=== PATIENT | female | born 1940 | race Caucasian/White ===

== ENCOUNTER → 2016-10-17 | Outpatient (CLI) | payer OTHER ==
[~2016-10-17] MED LIST: ATOR-22 PO; CALCTAB30 PO; LEVO50TA6 PO; NAPR1TAB9 PO; TRAM-10 PO; [UNRECOGNIZED DRUG - CODE] PO
--- NOTE | 2016-10-17 12:18 | DIAGNOSTIC IMAGING REPORT ---
CAROTID ARTERY ULTRASOUND CLINICAL HISTORY: LIGHTHEADEDNESS COMPARISON STUDY: None. TECHNIQUE: Real-time, grayscale, and color Doppler sonography of the carotid and vertebral arteries was performed. Images were viewed in the transverse and longitudinal planes. FINDINGS: There is mild atherosclerotic plaque. Velocity measurements are listed below. COMMON CAROTID PEAK SYSTOLIC VELOCITY (CM/S): RIGHT 98 LEFT 95 ICA PEAK SYSTOLIC VELOCITY (CM/S): RIGHT 91 LEFT 90 The systolic ratios between the internal to common carotid arteries are normal. Antegrade flow is seen in the vertebral arteries. The external carotid arteries are patent. Blood pressure in the right arm measured 121/64. Blood pressure in the left arm measured 124/60. IMPRESSION: No evidence of a hemodynamically significant stenosis. Electronically signed by: Don Gutierrez M.D. 10/17/2016 12:17 PM Dictated Date/Time: 10/17/2016 12:10 PM
== END | disposition home or self-care (01) ==
LOC: C.ULTR 11:04
PROVIDERS: ATTEND Physician Assistant
DX: I65.23 Occlusion and stenosis of bilateral carotid arteries (principal); R42 Dizziness and giddiness

== ENCOUNTER → 2016-11-11 | Day surgery (SDC) | payer OTHER ==
[2016-10-15 08:57] VITALS: Ht 162.6 cm; Wt 55.0 kg
[~2016-11-11] VITALS: Ht 162.6 cm; Wt 55.0 kg
[~2016-11-11] MED LIST changes: +500ML BSS 0.3ML EPI 1:1000PF IRRIG ONE; +ACETAMINOPHEN 325 MG TAB PO PRN; +AMVISC PLUS 0.8ML SYRINGE INT OCU ONE; +ATROPINE SULFATE 0.1 MG/ML 5ML SYR IV PRN; +BSS FLUSH ONE; +EpHEDrine SULFATE INJ 50 MG/ML AMP IV PRN; +EpINEphrine INJ 1MG/ML AMP 1 MG/ML AMP ONE; +LACTATED RINGER'S 1000ML 500 ML IV SCH; +LIDOCAINE 3.5% OPH GEL PER APPLICATION CHARGE ONE; +LIDOCAINE HCL 1% MPF 2 ML VIAL ONE; +MIDAZOLAM HCL 1 MG/ML 2ML VIAL ONE; +OCUCOAT 1 ML SOLN IO ONE; +POVIDONE-IODINE OP SOLN 30 ML BTL ONE; +PROPARACAINE 0.5% OP SOLN PER DROP CHARGE OPR SCH; +TOBRAMYCIN/DEXAMETHASONE OPH OINT PER APPLN CHARGE ONE
[2016-11-11] MEDS: PHENYLEPHRINE HCL 2.5% OP SOLN PER DROP CHARGE OPR SCH ×2 (09:41→09:46)
[2016-11-11] MEDS: TROPICAMIDE 1% OP SOLN PER DROP CHARGE OPR SCH ×2 (09:42→09:47)
[2016-11-11] MEDS: CYCLOPENTOLATE HCL 1% OP SOLN PER DROP CHARGE OPR SCH ×2 (09:43→09:48)
[2016-11-11] MEDS: KETOROLAC 0.5% OP SOLN PER DROP CHARGE OPR SCH ×2 (09:44→09:49)
[2016-11-11] MEDS: GATIFLOXACIN OP SOLN PER DROP CHARGE OPR SCH ×2 (09:45→09:53)
--- NOTE | 2016-11-11 10:06 | History & Physical Bridge - SC ---
H&P Re-Evaluation Bridge Note: I have examined the patient, reviewed the History & Physical and in the interval since the performance of the History & Physical I have noted the following changes of clinical significance: No changes noted
--- NOTE | 2016-11-11 10:39 | Discharge Instructions-SurgCtr ---
Discharge Instructions Date of Service Nov 11, 2016. Visit Reason for Visit: Cataract Right Eye Discharge Discharge Diagnosis / Problem: cataract Discharge Goals Goal(s): Improve function Activity Recommendations Activity Limitations: per Instructions/Follow-up section Anesthesia . Post Anesthesia Instructions: If you have had General Anesthesia or IV Sedation: * Do not drive today. * Resume driving when surgeon permits. * Do not make important decisions or sign legal documents today. * Call surgeon for: 1. Temperature elevations greater than 101 degrees F. 2. Uncontrollable pain. 3. Excessive bleeding. 4. Persistent nausea and vomiting. 5. Medication intolerance (nausea, vomiting or rash). * For nausea and vomiting use only clear liquids such as: tea, soda, bouillon until nausea subsides, then gradually increase diet as tolerated. * If you have any concerns or questions, call your surgeon's office. If physician is unavailable and it is an emergency, call 911 or go to the nearest emergency room. . Diet Recommendations Home Diet: resume previous diet Procedures Procedures Performed: Right Cataract Phacoemulsification With Intraocular Lens Implant Pending Studies Studies pending at discharge: no Medical Emergencies . Who to Call and When: Medical Emergencies: If at any time you feel your situation is an emergency, please call 911 immediately. . Non-Emergent Contact Non-Emergency issues call your: Floorworker Distributor . . "Provider Documentation" section prepared by Mono Martin. .
--- NOTE | 2016-11-11 10:39 | [facility] Operative Report ---
Operative Report Date of Service Nov 11, 2016. Operative Report 1. PREOPERATIVE DIAGNOSIS: Cataract of the right eye. 2. POSTOPERATIVE DIAGNOSIS: Same. 3. PROCEDURE: Phacoemulsification with intraocular lens implantation of the right eye. SURGEON: Dr. Mono Martin. ANESTHESIA: Topical Lidocaine gel, 1% Non- Preserved intracameral Lidocaine, and monitored intravenous sedation. INDICATIONS FOR THE PROCEDURE: The patient is a 76 - year-old female with a history of cataract of the right eye causing significant visual impairment. The details of the proposed procedure were explained to the patient who asked appropriate questions and following discussion of all risks, benefits and alternatives agreed to have the procedure done. 4. OPERATION AND FINDINGS: DESCRIPTION OF PROCEDURE: After informed consent was obtained, the patient was brought to the Operating Room at the [facility]. The patient was placed in a supine position and then the right eye was prepped and draped in the usual sterile fashion for intraocular surgery. A drop of topical Lidocaine gel was placed in the operative eye. A wire lid speculum was then placed in the fornices. A corneal paracentesis was then created temporally. The Non-Preserved Lidocaine was then instilled into the anterior chamber. The anterior chamber was then pressurized with viscoelastic. A 2.0 mm clear corneal incision was then created temporally. A cystotome was inserted into the anterior chamber and used to create a tear in the anterior lens capsule. This capsular tear was then used to create a small flap and the flap was dragged in a counterclockwise direction in order to create a continuous curvilinear capsulorrhexis. Hydrodissection was accomplished with balanced salt solution. Phacoemulsification of the lens nucleus was then performed in a standard [id number] technique. The phaco time was 21 seconds with an average power of 10 %. The remaining cortical material was removed using irrigation aspiration. The capsular bag was then filled with viscoelastic. A Bausch [employer] Lomb MI60L +22.0 diopters lens was then loaded into the injector and injected into the capsular bag. The remaining viscoelastic was removed with the irrigation aspiration handpiece. The wound was hydrated and then checked and found to be watertight. The intraocular pressure was checked and found to be adequate. The wire lid speculum was removed and the patient's face was cleaned and dried. TobraDex ointment was placed in the inferior fornix. The patient was discharged to the Recovery Room having tolerated the procedure well. There were no complications. The patient will be seen tomorrow in the office for follow-up. I attest to the content of the Intraoperative Record and any orders documented therein. Any exceptions are noted below.
[2016-11-11 10:40] VITALS: TEMP 36.1
--- NOTE | 2016-11-11 10:49 | Anesthesia Progress Nt - [facility] ---
Anesthesia Post Op Note Date & Time Nov 11, 2016 at 10:49 Vital Signs Pain Intensity: 0 Vital Signs Past 12 Hours Date Time Temp Pulse Resp B/P (MAP) Pulse Ox O2 Delivery O2 Flow Rate FiO2 11/11/16 10:40 36.1 70 20 144/71 (95) 100 Room Air 11/11/16 09:34 36.4 71 16 164/90 (114) 98 Room Air Notes Mental Status: alert / awake / arousable, participated in evaluation Pt Amnestic to Procedure: Yes Nausea / Vomiting: adequately controlled Pain: adequately controlled Airway Patency, RR, SpO2: stable & adequate BP & HR: stable & adequate Hydration State: stable & adequate Anesthetic Complications: no major complications apparent
[2016-11-11 11:04] VITALS: BP 156/78; PULSE 72; O2SAT 100
== END | disposition home or self-care (01) ==
LOC: X.SURG 08:34
PROVIDERS: ATTEND Ophthalmology
DX: H25.9 Unspecified age-related cataract (principal); E78.5 Hyperlipidemia, unspecified; E03.9 Hypothyroidism, unspecified; Z79.899 Other long term (current) drug therapy; I65.29 Occlusion and stenosis of unspecified carotid artery

== ENCOUNTER → 2016-12-02 | Day surgery (SDC) | payer OTHER ==
[2016-11-20 11:20] VITALS: Ht 162.6 cm; Wt 55.0 kg
[~2016-12-02] VITALS: Ht 162.6 cm; Wt 55.0 kg
[~2016-12-02] MED LIST changes: +PROPARACAINE 0.5% OP SOLN PER DROP CHARGE OPL SCH; -PROPARACAINE 0.5% OP SOLN PER DROP CHARGE OPR SCH
[2016-12-02] MEDS: PHENYLEPHRINE HCL 2.5% OP SOLN PER DROP CHARGE OPL SCH ×2 (10:37→10:42)
[2016-12-02] MEDS: TROPICAMIDE 1% OP SOLN PER DROP CHARGE OPL SCH ×2 (10:38→10:43)
[2016-12-02] MEDS: CYCLOPENTOLATE HCL 1% OP SOLN PER DROP CHARGE OPL SCH ×2 (10:39→10:44)
[2016-12-02] MEDS: KETOROLAC 0.5% OP SOLN PER DROP CHARGE OPL SCH ×2 (10:40→10:45)
[2016-12-02] MEDS: GATIFLOXACIN OP SOLN PER DROP CHARGE OPL SCH ×2 (10:41→10:51)
--- NOTE | 2016-12-02 11:37 | Discharge Instructions-SurgCtr ---
Discharge Instructions Date of Service Dec 02, 2016. Visit Reason for Visit: Cataract Left Eye Discharge Discharge Diagnosis / Problem: cataract Discharge Goals Goal(s): Improve function Activity Recommendations Activity Limitations: per Instructions/Follow-up section Anesthesia . Post Anesthesia Instructions: If you have had General Anesthesia or IV Sedation: * Do not drive today. * Resume driving when surgeon permits. * Do not make important decisions or sign legal documents today. * Call surgeon for: 1. Temperature elevations greater than 101 degrees F. 2. Uncontrollable pain. 3. Excessive bleeding. 4. Persistent nausea and vomiting. 5. Medication intolerance (nausea, vomiting or rash). * For nausea and vomiting use only clear liquids such as: tea, soda, bouillon until nausea subsides, then gradually increase diet as tolerated. * If you have any concerns or questions, call your surgeon's office. If physician is unavailable and it is an emergency, call 911 or go to the nearest emergency room. . Diet Recommendations Home Diet: resume previous diet Procedures Procedures Performed: Left Cataract Phacoemulsification With Intraocular Lens Implant Pending Studies Studies pending at discharge: no Medical Emergencies . Who to Call and When: Medical Emergencies: If at any time you feel your situation is an emergency, please call 911 immediately. . Non-Emergent Contact Non-Emergency issues call your: Mortgage Manager . . "Provider Documentation" section prepared by Mono Martin. .
--- NOTE | 2016-12-02 11:38 | [facility] Operative Report ---
Operative Report Date of Service Dec 02, 2016. Operative Report 1. PREOPERATIVE DIAGNOSIS: Cataract of the left eye. 2. POSTOPERATIVE DIAGNOSIS: Same. 3. PROCEDURE: Phacoemulsification with intraocular lens implantation of the left eye. SURGEON: Dr. Mono Martin. ANESTHESIA: Topical Lidocaine gel, 1% Non- Preserved intracameral Lidocaine, and monitored intravenous sedation. INDICATIONS FOR THE PROCEDURE: The patient is a 76 - year-old female with a history of cataract of the left eye causing significant visual impairment. The details of the proposed procedure were explained to the patient who asked appropriate questions and following discussion of all risks, benefits and alternatives agreed to have the procedure done. 4. OPERATION AND FINDINGS: DESCRIPTION OF PROCEDURE: After informed consent was obtained, the patient was brought to the Operating Room at the [facility]. The patient was placed in a supine position and then the left eye was prepped and draped in the usual sterile fashion for intraocular surgery. A drop of topical Lidocaine gel was placed in the operative eye. A wire lid speculum was then placed in the fornices. A corneal paracentesis was then created temporally. The Non-Preserved Lidocaine was then instilled into the anterior chamber. The anterior chamber was then pressurized with viscoelastic. A 2.0 mm clear corneal incision was then created temporally. A cystotome was inserted into the anterior chamber and used to create a tear in the anterior lens capsule. This capsular tear was then used to create a small flap and the flap was dragged in a counterclockwise direction in order to create a continuous curvilinear capsulorrhexis. Hydrodissection was accomplished with balanced salt solution. Phacoemulsification of the lens nucleus was then performed in a standard [id number] technique. The phaco time was 24 seconds with an average power of 12 %. The remaining cortical material was removed using irrigation aspiration. The capsular bag was then filled with viscoelastic. A Bausch & Lomb MI60L +22.5 diopters lens was then loaded into the injector and injected into the capsular bag. The remaining viscoelastic was removed with the irrigation aspiration handpiece. The wound was hydrated and then checked and found to be watertight. The intraocular pressure was checked and found to be adequate. The wire lid speculum was removed and the patient's face was cleaned and dried. TobraDex ointment was placed in the inferior fornix. The patient was discharged to the Recovery Room having tolerated the procedure well. There were no complications. The patient will be seen tomorrow in the office for follow-up. I attest to the content of the Intraoperative Record and any orders documented therein. Any exceptions are noted below.
[2016-12-02 11:40] VITALS: TEMP 36.8
[2016-12-02 12:04] VITALS: BP 142/79; PULSE 77; O2SAT 99
--- NOTE | 2016-12-02 12:04 | Anesthesiology Progress Note ---
Anesthesia Post Op Note Date & Time Dec 02, 2016 at 12:04 Vital Signs Pain Intensity: 0 Vital Signs Past 12 Hours Date Time Temp Pulse Resp B/P (MAP) Pulse Ox O2 Delivery O2 Flow Rate FiO2 12/02/16 11:40 36.8 71 16 121/66 (84) 99 Room Air 12/02/16 10:27 36.4 60 16 148/80 (102) 97 Room Air Notes Mental Status: alert / awake / arousable, participated in evaluation Nausea / Vomiting: adequately controlled Pain: adequately controlled Airway Patency, RR, SpO2: stable & adequate BP & HR: stable & adequate Hydration State: stable & adequate Anesthetic Complications: no major complications apparent
== END | disposition home or self-care (01) ==
LOC: X.SURG 09:16
PROVIDERS: ATTEND Ophthalmology
DX: H26.9 Unspecified cataract (principal); E78.2 Mixed hyperlipidemia; E03.9 Hypothyroidism, unspecified; I65.23 Occlusion and stenosis of bilateral carotid arteries; M85.80 Other specified disorders of bone density and structure, unspecified site; Z79.899 Other long term (current) drug therapy; Z98.41 Cataract extraction status, right eye; Z83.3 Family history of diabetes mellitus; Z82.49 Family history of ischemic heart disease and other diseases of the circulatory system; Z81.8 Family history of other mental and behavioral disorders

== ENCOUNTER → 2017-10-07 | Outpatient (CLI) | payer OTHER ==
[~2017-10-07] MED LIST changes: -500ML BSS 0.3ML EPI 1:1000PF IRRIG ONE; -ACETAMINOPHEN 325 MG TAB PO PRN; -AMVISC PLUS 0.8ML SYRINGE INT OCU ONE; -ATROPINE SULFATE 0.1 MG/ML 5ML SYR IV PRN; -BSS FLUSH ONE; -EpHEDrine SULFATE INJ 50 MG/ML AMP IV PRN; -EpINEphrine INJ 1MG/ML AMP 1 MG/ML AMP ONE; -LACTATED RINGER'S 1000ML 500 ML IV SCH; -LIDOCAINE 3.5% OPH GEL PER APPLICATION CHARGE ONE; -LIDOCAINE HCL 1% MPF 2 ML VIAL ONE; -MIDAZOLAM HCL 1 MG/ML 2ML VIAL ONE; -OCUCOAT 1 ML SOLN IO ONE; -POVIDONE-IODINE OP SOLN 30 ML BTL ONE; -PROPARACAINE 0.5% OP SOLN PER DROP CHARGE OPL SCH; -TOBRAMYCIN/DEXAMETHASONE OPH OINT PER APPLN CHARGE ONE
--- NOTE | 2017-10-07 11:10 | DIAGNOSTIC IMAGING REPORT ---
L TOE(S) MIN 2 VIEWS HISTORY: 77 years-old Female LEFT TOE PAIN acute pain of the left fifth toe COMPARISON: None available TECHNIQUE: 3 views of the left fifth toe FINDINGS: Bones appear mildly demineralized. Moderate degenerative changes of the interphalangeal joints. There is an acute nondisplaced fracture involving the lateral base of the fifth proximal phalanx with possible intra-articular extension. Linear lucencies about the central fifth proximal phalangeal head and lateral aspect of the fifth middle phalanx are also noted. Mild soft tissue swelling. IMPRESSION: 1. Acute nondisplaced fracture of the fifth proximal phalangeal base with possible intra-articular extension. 2. Ill-defined linear lucencies involving the fifth proximal phalangeal head and fifth middle phalanx are also noted, equivocal for additional acute nondisplaced fractures. Correlate with point tenderness. The above report was generated using voice recognition software. It may contain grammatical, syntax or spelling errors. Electronically signed by: Ronnie Tejeda M.D. 10/07/2017 11:09 AM Dictated Date/Time: 10/07/2017 11:05 AM
== END | disposition home or self-care (01) ==
LOC: C.RAD 10:21
PROVIDERS: ATTEND Physician Assistant
DX: S92.515A Nondisplaced fracture of proximal phalanx of left lesser toe(s), initial encounter for closed fracture (principal); X58.XXXA Exposure to other specified factors, initial encounter

== ENCOUNTER 2021-10-06 21:58 | Observation (INO) ==
[2021-10-06] MEDS ORDERED: SODIUM CHLORIDE 0.9% 1000ML 1,000 ML IV SCH (22:15)
[2021-10-06] MEDS ORDERED: SODIUM CHLORIDE 0.9% 500 ML IV SCH (22:15)
[2021-10-06 22:25] LABS: Basophils # (auto) 0.04 K/uL (0-0.2); Basophils % (auto) 0.4 %; Eosinophils # (auto) 0.22 K/uL (0-0.50); Eosinophils % (auto) 2.4 %; Hematocrit (blood only) 40.5 % (34.1-44.9); Hemoglobin 13.2 g/dl (12.0-16.0); Immature Granulocytes # (auto) 0.03 K/uL (0.00-0.02); Immature Granulocytes % (auto) 0.3 %; Lymphocytes # (auto) 2.06 K/uL (1.2-3.4); Lymphocytes % (auto) 22.6 %; Mean Corpuscular Hemoglobin 30.4 pg (25.0-34.0); Mean Corpuscular Hgb Conc 32.6 g/dL (32.0-36.0); Mean Corpuscular Volume 93.3 fL (80.0-100.0); Mean Platelet Volume 9.5 fL (9.4-12.3); Monocytes # (auto) 0.94 K/uL (0.24-0.82); Monocytes % (auto) 10.3 %; Neutrophils # (auto) 5.83 K/uL (1.4-6.5); Platelet Count 272 K/uL (130-400); RDW Coefficient of Variation 12.9 % (11.5-14.5); Red Blood Count 4.34 M/uL (3.93-5.22); White Blood Count 9.12 K/ul (4.8-10.8)
[2021-10-06] MEDS ORDERED: METOPROLOL TARTRATE 1 MG/ML VIAL IV STA (22:31)
[2021-10-06 22:45] LABS: Albumin Globulin Ratio 1.7 (0.9-2); Albumin Level 4.3 gm/dl (3.4-5.0); BUN Creatinine Ratio 24.1 (10-20); Bilirubin,Total 0.3 mg/dl (0.2-1.0); Calcium 9.3 mg/dl (8.5-10.1); Creatinine Clr Calc Pharmacy 43.7 ml/min; Est GFR (African American) 77.2 ml/min; Est GFR (Non-African American) 66.6 ml/min; Globulin 2.5 gm/dl (2.5-4.0); Magnesium 2.2 mg/dl (1.7-2.4); Total Protein 6.8 gm/dl (6.0-8.3)
[2021-10-06 22:51] LABS: Troponin I High Sensitivity 7.2 pg/ml (0-14)
--- NOTE | 2021-10-06 23:09 | Emergency Department Note ---
Impression & Plan Narrow complex tachycardia, Dizziness, Weakness ED Provider Note INFORMANT: Patient ED PROVIDER(S): Skuhdev Leger MD CHIEF COMPLAINT: Weakness PLAN: Disposition: Admitted Condition: Good Outpatient prescription management: none Referral: None MEDICAL DECISION MAKING: Patient presented because of weakness and palpitations. She had an extremely fast heart rate that was narrow complex. There was a lot of ectopy with PACs and PVCs noted. At some point it appeared to be irregular like an A. fib with RVR but she frequently would break into what appeared to be a sinus rhythm and s inus tachycardia. An IV was established by EMS and she was hydrated. Additional hydration was given in the emergency department here. She was given 2.5 mg dose of IV Lopressor. This did work nicely to decrease the episodes of tachycardia. She was still having significant PACs and PVCs. Her CBC and chemistry panel was unremarkable. Magnesium and potassium were within normal limits. Urinalysis is pending. Chest x-ray did not reveal any acute findings. Patient was reassessed and was still doing well. She would occasionally have a few bursts of tachycardia but for the most part was controlled around 95 to 100 bpm. She still had moderate ectopy. I discussed conservative management in the hospital. Patient was in agreement. Consultation was placed with the [facility] Hospitalist service. Patient was evaluated in the ER and was managed Triage Nursing notes reviewed and agree them. Vital Signs: reviewed and remarkable for no significant abnormalities Differential diagnosis: Infection, dehydration, metabolic abnormality, hypo/hyperglycemia, electrolyte disturbance, anemia, hypoxia, cardiac sources, intracerebral event, toxicologic, neurologic, as well as other pathologies. Diagnostics interpreted by me: ECG: Twelve-lead ECG reveals a sinus rhythm with a brief narrow complex tachycardia that was irregular. Premature supraventricular complexes present. No ST elevation or depression. Cardiac Monitoring: Cardiac monitoring ordered by me: The patient was placed on continuous cardiac monitoring and observed. It revealed a sinus rhythm with P ACs and PVCs at 98 bpm. Imaging studies: Chest x-ray. Findings: A chest x-ray was performed and revealed no pneumothorax, effusion, infiltrate, pulmonary edema, free air under the diaphragm, or wide mediastinum. Impression: No acute disease. HPI: The patient is a 81year old female who presents to the Emergency Room with complaints of weakness. This started today and is persistent. The patient also notes the following associated symptoms, dizziness and palpitations. The patient has found no relieving factors. Current pain is rated as 0/10. Patient was feeling weak and dizzy and her heart was racing. She was evaluated by EMS and was found to have a heart rate of 180. She was given a 700 mL saline bolus. Her heart rate did decrease slightly but was still going to the 130s. Occasionally she would slow down to below 100. Patient denies any history of the same. She thought it may be due to stress as she recently lost 2 family members. Pt denies LOC, headache, fevers, chills, diaphoresis, visual changes, neck pain, chest pain, breathing difficulties, nausea, vomiting, abdominal pain, back pain, melena, hematochezia, urinary symptoms, numbness, lymphadenopathy, rash, or other complaints. ROS: See above HPI for pertinent positives & negatives. A total of 10 systems reviewed and were otherwise negative. PAST MEDICAL HISTORY:See Below , hypothyroidism PAST SURGICAL HISTORY:See Below, FAMILY HISTORY:See Below SOCIAL HISTORY:See Below, non-smoker HOME MEDICATIONS:See Below ALLERGIES:See Below VITALS:See Below PHYSICAL EXAMINATION: GENERAL: Awake, tired-appearing, in no distress HENT: Normocephalic, atraumatic. Oropharynx unremarkable. EYES: Normal conjunctiva. Sclera non-icteric. NECK: Inspection normal. Non-tender. Supple. No nuchal rigidity. FROM. No masses. RESPIRATORY: Clear to auscultation. No wheezes. No rales. Normal respiratory effort. CARDIAC: Tachycardic rate. Irregular rhythm. No murmurs. No rubs. Extremities warm and well perfused. Pulses equal. No JVD. GI: Soft, non-distended. No tenderness to palpation. No rebound or guarding. No masses. RECTAL: Deferred. MUSCULOSKELETAL: Atraumatic. Chest examination reveals no tenderness. The back is symmetrical on inspection without obvious abnormality. There is no CVA tenderness to palpation. No joint edema. LOWER EXTREMITIES: Calves are equal size bilaterally and non-tender. No edema. No discoloration. NEURO: Normal sensorium. No sensory or motor deficits noted. SKIN: No rash or jaundice noted. Sukhdev Leger MD Past Med/Surg History Social History Smoking Status: Never smoker Preferred Language: Urdu Feels Safe at Home: Yes Allergies Allergies Allergy/AdvReac Type Severity Reaction Status Date / Time No Known Drug Allergies Allergy Unknown . Verified 08/05/20 17:39 Home Meds Home Medications Medication Instructions Recorded Confirmed atorvastatin 20 mg tablet 20 mg PO DAILY 08/05/20 08/05/20 levothyroxine 50 mcg tablet 50 mcg PO DAILY 08/05/20 08/05/20 tramadol 50 mg tablet 50 mg PO DAILY PRN Pain 08/05/20 08/05/20 Results & Data (ED) Vital Signs Vital Signs - 24 hr 10/06/21 22:12 10/06/21 22:25 10/06/21 22:25 Temperature 36.9 C Temperature Source Oral Pulse Rate 125 H Pulse Rate [Finger] 125 H Pulse Rhythm [Finger] Irregular Respiratory Rate 18 18 Respiratory Effort / Characteristics Non-Labored Spontaneous Non-Labored Spontaneous Respiratory Depth Normal Normal Blood Pressure 137/53 L Blood Pressure [Right Arm] 137/53 L Blood Pressure Mean 81 Blood Pressure Mean [Right Arm] 81 Blood Pressure Position Sitting Blood Pressure Position [Right Arm] Sitting Pulse Oximetry 96 96 96 Oxygen Delivery Method Room Air Room Air Room Air Sepsis Recent Fever Within 48 Hours No Sepsis New/Unexplained Change in Mental Status No Sepsis Action Taken by Nursing No Action Required 10/06/21 22:25 10/06/21 22:36 10/06/21 23:00 Temperature Temperature Source Pulse Rate 125 H 138 H Pulse Rate [Finger] 91 H Pulse Rhythm [Finger] Respiratory Rate 18 17 Respiratory Effort / Characteristics Non-Labored Spontaneous Respiratory Depth Normal Blood Pressure 127/76 Blood Pressure [Right Arm] 122/76 Blood Pressure Mean Blood Pressure Mean [Right Arm] 91 Blood Pressure Position Blood Pressure Position [Right Arm] Sitting Pulse Oximetry 96 97 Oxygen Delivery Method Room Air Room Air Sepsis Recent Fever Within 48 Hours Sepsis New/Unexplained Change in Mental Status Sepsis Action Taken by Nursing Laboratory Data Result diagrams: 10/06/21 22:04 10/06/21 22:04 Lab Results 10/06/21 10/06/21 10/06/21 Range/Units 22:04 22:04 22:04 WBC 9.12 (4.8-10.8) K/ul RBC 4.34 (3.93-5.22) M/uL Hgb 13.2 (12.0-16.0) g/dl Hct 40.5 (34.1-44.9) % MCV 93.3 (80.0-100.0) fL MCH 30.4 (25.0-34.0) pg MCHC 32.6 (32.0-36.0) g/dL RDW Std Deviation 44.0 (36.4-46.3) fL RDW Coeff of Lucas 12.9 (11.5-14.5) % Plt Count 272 (130-400) K/uL MPV 9.5 (9.4-12.3) fL Immature Gran % (Auto) 0.3 % Neut % (Auto) 64.0 % Lymph % (Auto) 22.6 % [place] % (Auto) 10.3 % Eos % (Auto) 2.4 % Baso % (Auto) 0.4 % Neut # (Auto) 5.83 (1.4-6.5) K/uL Lymph # (Auto) 2.06 (1.2-3.4) K/uL [place] # (Auto) 0.94 H (0.24-0.82) K/uL Eos # (Auto) 0.22 (0-0.50) K/uL Baso # (Auto) 0.04 (0-0.2) K/uL Immature Gran # (Auto) 0.03 H (0.00-0.02) K/uL Sodium 134 L (136-145) mmol/L Potassium 4.0 (3.5-5.1) mmol/L Chloride 99 (98-107) mmol/L Carbon Dioxide 28 (21-32) mmol/L Anion Gap 7 (3-11) BUN 20 (6-23) mg/dl Creatinine 0.83 (0.6-1.2) mg/dl Est Cr Clr Drug Dosing 43.7 ml/min Est GFR ( Amer) 77.2 ml/min Est GFR (Non-Af Amer) 66.6 ml/min BUN/Creatinine Ratio 24.1 H (10-20) Glucose 115 H (70-99(Fasting)) mg/dl Calcium 9.3 (8.5-10.1) mg/dl Magnesium 2.2 (1.7-2.4) mg/dl Total Bilirubin 0.3 (0.2-1.0) mg/dl AST 23 (13-39) U/L ALT 21 (7-52) U/L Alkaline Phosphatase 80 (34-104) U/L Troponin I High Sens 7.2 (0-14) pg/ml Total Protein 6.8 (6.0-8.3) gm/dl Albumin 4.3 (3.4-5.0) gm/dl Globulin 2.5 (2.5-4.0) gm/dl Albumin/Globulin Ratio 1.7 (0.9-2) TSH 3.596 (0.300-4.500) uIu/ml SARS-CoV-2, RNA, NAAT (NEGATIVE) 10/06/21 Range/Units 23:01 WBC (4.8-10.8) K/ul RBC (3.93-5.22) M/uL Hgb (12.0-16.0) g/dl Hct (34.1-44.9) % MCV (80.0-100.0) fL MCH (25.0-34.0) pg MCHC (32.0-36.0) g/dL RDW Std Deviation (36.4-46.3) fL RDW Coeff of Lucas (11.5-14.5) % Plt Count (130-400) K/uL MPV (9.4-12.3) fL Immature Gran % (Auto) % Neut % (Auto) % Lymph % (Auto) % [place] % (Auto) % Eos % (Auto) % Baso % (Auto) % Neut # (Auto) (1.4-6.5) K/uL Lymph # (Auto) (1.2-3.4) K/uL [place] # (Auto) (0.24-0.82) K/uL Eos # (Auto) (0-0.50) K/uL Baso # (Auto) (0-0.2) K/uL Immature Gran # (Auto) (0.00-0.02) K/uL Sodium (136-145) mmol/L Potassium (3.5-5.1) mmol/L Chloride (98-107) mmol/L Carbon Dioxide (21-32) mmol/L Anion Gap (3-11) BUN (6-23) mg/dl Creatinine (0.6-1.2) mg/dl Est Cr Clr Drug Dosing ml/min Est GFR ( Amer) ml/min Est GFR (Non-Af Amer) ml/min BUN/Creatinine Ratio (10-20) Glucose (70-99(Fasting)) mg/dl Calcium (8.5-10.1) mg/dl Magnesium (1.7-2.4) mg/dl Total Bilirubin (0.2-1.0) mg/dl AST (13-39) U/L ALT (7-52) U/L Alkaline Phosphatase (34-104) U/L Troponin I High Sens (0-14) pg/ml Total Protein (6.0-8.3) gm/dl Albumin (3.4-5.0) gm/dl Globulin (2.5-4.0) gm/dl Albumin/Globulin Ratio (0.9-2) TSH (0.300-4.500) uIu/ml SARS-CoV-2, RNA, NAAT NEGATIVE (NEGATIVE) Administered Medications Sodium Chloride (Nss 1000ml) 1,000 mls @ 125 mls/hr IV .Q8H ANGELA Stop: 10/07/21 06:14 Last Admin: 10/06/21 22:33 Dose: 125 mls/hr Documented By: CC Discontinued Medications Sodium Chloride (Nss) 500 mls @ 999 mls/hr IV .Q31M ANGELA Stop: 10/06/21 22:45 Last Admin: 10/06/21 22:36 Dose: 999 mls/hr Documented By: CC Metoprolol Tartrate (Metoprolol Tartrate 1 Mg/Ml Vial) 2.5 mg IV NOW STA Stop: 10/06/21 22:32 Last Admin: 10/06/21 22:36 Dose: 2.5 mg Documented By: CC Discharge Plan Visit Data Chief Complaint: Weakness Stated Complaint: GEN. WEAKNESS, DIZZY, FLUSHIING ED Provider: Sukhdev Leger Discharge Problem: Narrow complex tachycardia, Dizziness, Weakness Forms Stand Alone Forms: My [employer] Prescriptions Prescriptions: No Action atorvastatin 20 mg tablet 20 mg PO DAILY tramadol 50 mg tablet 50 mg PO DAILY PRN (Reason: Pain) levothyroxine 50 mcg tablet 50 mcg PO DAILY Referrals Referrals: Aracelis Rivera MD [Primary Care Provider] -
[2021-10-06 23:44] LABS: Appearance Urine Clear (Clear); Bilirubin Urine Negative (Negative); Blood Urine Negative (Negative); Color Urine Yellow; Glucose Urine UA Negative (Negative); Ketones Urine Negative (Negative); Leukocyte Esterase Urine Negative (Negative); Nitrite Urine Negative (Negative); Protein Urine Negative (Negative); Specific Gravity Urine 1.004 (1.000-1.030); Urobilinogen Urine Negative (Negative)
--- NOTE | 2021-10-07 02:12 | History and Physical Report ---
DATE OF ADMISSION: 10/07/2021. CHIEF COMPLAINT: Narrow complex tachycardia, weakness. HISTORY OF PRESENT ILLNESS: This is an 81-year-old female with past medical history significant for hyperlipidemia, hypothyroidism, osteoporosis, currently who is living alone, presents with some dizziness and found to have narrow complex tachycardia. The patient says it was a busy day today. She was trying to sell her brother's house and lot of people came lot of talking as well as talking to sister on the phone when she started feeling dizzy. . She called the neighbor and then they called the ambulance. EMS found the heart rate in the 190s and and they gave her some fluids, her heart rate improved to 130, and she was brought to the ER. In the ER, she was in tachycardia at 130s. She was given a dose of Lopressor and her symptoms improved and also given fluids. Currently, resting comfortably and hemodynamically stable. Currently dizziness improved. She has no headache. She has some back pain on and off from arthritis, but currently, no pain. No blurred visions, no earache, no runny nose, no sore throat, no cough. Appetite is okay. No difficulty swallowing. No chest pain, no shortness of breath, no nausea, no abdominal pain. Normal bowel and bladder movements. Currently, resting comfortably and hemodynamically stable. ALLERGIES: No known drug allergies. PAST MEDICAL HISTORY: As mentioned above. PAST SURGICAL HISTORY: None. MEDICATIONS: The patient is on Tylenol Extra Strength b.i.d. p.r.n., atorvastatin 20 mg p.o. daily, levothyroxine 75 mcg p.o. daily, Centrum Silver 1 tablet p.o. daily, tramadol 50 mg p.o. daily. FAMILY HISTORY: Significant for mother had cancer, diabetes, heart disorder; father has heart disorder, diabetes. SOCIAL HISTORY: Currently single. No smoking, no alcohol, no drug use. REVIEW OF SYSTEMS: As per HPI. Rest of the review of systems is negative. PHYSICAL EXAMINATION: GENERAL: The patient is old and frail, not in acute distress. VITAL SIGNS: Temperature 36.9, pulse 105, respiratory rate 18, blood pressure 125/84, oxygen 94% on room air. HEENT: Pupils equal, round and reactive to light. Oral mucosa moist. NECK: No JVD. No neck masses. CARDIOVASCULAR: S1 and S2 heard. Regular rate and rhythm. No murmur, no gallop. RESPIRATORY SYSTEM: Normal AP diameter. No accessory muscle use. No wheezing, no crackles. ABDOMEN: Soft, bowel sounds present, nontender, nondistended. CENTRAL NERVOUS SYSTEM: Cranial nerves II-XII grossly intact, nonfocal. EXTREMITIES: No edema, no erythema. LABORATORY DATA: WBC 9.1, hemoglobin 13.2, hematocrit 40.5, platelets 272. Sodium 134, potassium 4, chloride 99, bicarb 28, BUN 20, creatinine 0.8, serum glucose 115, calcium 9.3, magnesium 2.2, total bilirubin 0.3, AST 23, ALT 21, alkaline phosphatase 80. Troponin I high sensitivity 7.2. TSH 3.5. Urinalysis negative. SARS-CoV-2 rapid test negative. IMAGING DATA: Chest x-ray, no acute findings. EKG: Sinus tachycardia with first-degree AV block with premature supraventricular complex at a rate of 130. No acute ST-T changes seen. ASSESSMENT AND PLAN: This is an 81-year-old female who presents with narrow complex tachycardia. 1. Narrow complex tachycardia: Initially, her heart rate was in 190s. With fluids, improved, here it was in 130s, some PVCs. After IV Lopressor, heart rate improved to low 100s. Blood pressure is okay, resting comfortably, hemodynamically stable and dizziness, improved. Labs are okay. We will follow serial enzymes, echo, monitor in the tele floor. Consult cardiology in the a.m. Continue fluids. 2. Hypothyroidism: Continue Synthroid. TSH is normal. 3. Hyperlipidemia: Continue statin. 4. Arthritis: Continue home pain medications. 5. Deep venous thrombosis prophylaxis: Sequential compression devices, heparin subcutaneous. DISPOSITION: Observation in med/tele floor. PT/OT prior to discharge. Social service to help with discharge planning. Job ID: [id number] [facility]
[2021-10-07] MEDS ORDERED: SODIUM CHLORIDE 0.9% 1000ML 1,000 ML IV SCH (03:00)
[2021-10-07] MEDS ORDERED: NITROGLYCERIN SL 0.4 MG/TAB TAB SL PRN (03:00)
[2021-10-07] MEDS ORDERED: ACETAMINOPHEN 325 MG TAB PO PRN (03:00)
[2021-10-07] MEDS ORDERED: METOPROLOL TARTRATE 1 MG/ML VIAL IV PRN (03:00)
[2021-10-07 05:14] LABS: Basophils # (auto) 0.03 K/uL (0-0.2); Basophils % (auto) 0.4 %; Eosinophils # (auto) 0.15 K/uL (0-0.50); Eosinophils % (auto) 2.2 %; Hematocrit (blood only) 35.8 % (34.1-44.9); Hemoglobin 11.6 g/dl (12.0-16.0); Immature Granulocytes # (auto) 0.01 K/uL (0.00-0.02); Immature Granulocytes % (auto) 0.1 %; Lymphocytes # (auto) 1.65 K/uL (1.2-3.4); Mean Corpuscular Hemoglobin 30.7 pg (25.0-34.0); Mean Corpuscular Hgb Conc 32.4 g/dL (32.0-36.0); Mean Corpuscular Volume 94.7 fL (80.0-100.0); Mean Platelet Volume 9.3 fL (9.4-12.3); Monocytes # (auto) 0.73 K/uL (0.24-0.82); Monocytes % (auto) 10.6 %; Neutrophils # (auto) 4.31 K/uL (1.4-6.5); Neutrophils % (auto) 62.7 %; Platelet Count 243 K/uL (130-400); RDW Coefficient of Variation 13.2 % (11.5-14.5); RDW Standard Deviation 45.1 fL (36.4-46.3); Red Blood Count 3.78 M/uL (3.93-5.22); White Blood Count 6.88 K/ul (4.8-10.8)
[2021-10-07 05:43] LABS: Troponin I High Sensitivity 9.6 pg/ml (0-14)
[2021-10-07 05:52] LABS: BUN Creatinine Ratio 27.8 (10-20); Calcium 7.9 mg/dl (8.5-10.1); Creatinine Clr Calc Pharmacy 67.2 ml/min; Est GFR (African American) 103.3 ml/min; Est GFR (Non-African American) 89.1 ml/min; Potassium 3.9 mmol/L (3.5-5.1)
[2021-10-07] MEDS ORDERED: LEVOTHYROXINE SODIUM 75 MCG TABLET PO SCH (06:30)
[2021-10-07] MEDS ORDERED: traMADol HCL 50 MG TABLET ONE (07:56)
--- NOTE | 2021-10-07 08:38 | XRay Report ---
SINGLE VIEW CHEST CLINICAL HISTORY: Generalized weakness. FINDINGS: 2 AP, portable, upright chest radiographs are obtained. No prior studies are available for comparison at the time of dictation. The cardiomediastinal silhouette is unremarkable noting atherosc lerotic calcification of the thoracic aorta. There is bibasilar scarring/atelectasis. No airspace con solidation or large pleural effusion is identified. No pneumothorax is seen. The skeletal structures are osteopenic. The bony thorax is grossly intact. IMPRESSION: No acute cardiopulmonary abnormality. ACT 112: Negative or not required by law. Electronically signed by: Fredo Ramirez M.D. 10/07/2021 8:36 AM
[2021-10-07] MEDS ORDERED: HEPARIN SOD 5,000 UNIT/0.5 ML VIAL SQ SCH (09:00)
[2021-10-07] MEDS ORDERED: CEROVITE ADV FORMULA TAB PO SCH (09:00)
[2021-10-07] MEDS ORDERED: traMADol HCL 50 MG TABLET PO SCH (09:00)
--- NOTE | 2021-10-07 10:29 | Cardiology Consultation ---
Date of Consultation October 07, 2021 Assessment & Plan (1) PSVT (paroxysmal supraventricular tachycardia): (2) Dizziness: (3) Acute prerenal azotemia: Plan PSVT in the setting of significant volume depletion has maintained sinus since presentation will not start any meds at this time will have a 2 week zio patch monitor placed at [facility] today and f/u with me in 4-6 weeks ok to d/c to home from cardiac standpoint History of Present Illness Reason for Consultation: PSVT Requesting Physician: JAGJIT Attending Physician: Kaitlin Rodrigez MD History of Present Illness Sister Joy Is a very pleasant 81-year-old woman who presented to [facility] on 10/06/2021 with complaints of dizziness. EMS was summoned and twelve-lead EKG revealed paroxysmal supraventricular tachycardia. She states that she has been under a great deal of stress lately and is currently cleaning out her brother's house after he . She has been working in the heat and admits that she does not like to drink liquids. Since receiving IV fluids in the ER she states that she is feeling much better and is very anxious for discharge. Allergies Allergy/AdvReac Type Severity Reaction Status Date / Time No Known Drug Allergies Allergy Unknown . Verified 10/06/21 23:47 Home Medications Medication Instructions Recorded Confirmed Type atorvastatin 20 mg tablet 20 mg PO QPM 08/05/20 10/06/21 History tramadol 50 mg tablet 50 mg PO DAILY 08/05/20 10/06/21 History acetaminophen 500 mg tablet 500 mg PO BID PRN Pain 10/06/21 10/06/21 History (Tylenol Extra Strength) levothyroxine 75 mcg tablet 75 mcg PO DAILY 10/06/21 10/06/21 History ubxxtqoh-efa-gajoo acid 0.4 1 tab PO DAILY 10/06/21 10/06/21 History mg-lycopene 300 mcg-lutein 250 mcg tablet (Centrum Silver) Patient History Social History Smoking Status: Never smoker Hx Alcohol Use: Yes Alcohol type: wine Hx Substance Use: No Preferred Language: French Communication Ability: Effective [employer] Supervisor Required: No Current Living Situation: Alone Current Living Situation Comment: will be moving to live with synagogue Oct 28 Feels Safe at Home: Yes Safety Concerns: Feels Safe At This Time Review of Systems Review of Systems: All systems reviewed & are unremarkable except as noted in HPI & below Physical Exam Physical Exam: General: Awake, alert and oriented x 3. No acute distress. HEENT: Normocephalic, atraumatic. Pupils equal, round and reactive to light and accommodation. Extraocular muscles are intact. Anicteric sclera. Moist mucous membranes. Neck: No JVD. No bruit. Cardiovascular: Regular. Positive S-4. Normal S-1 and S-2. No S-3. No murmurs or rubs. Pulmonary: Clear to auscultation B/L. No rales, rhonchi or wheezing Abdomen: Bowel sounds x 4, soft. No rebound, guarding or tenderness. No organomegaly. Extremities: No clubbing, cyanosis or edema. +2 pedal pulses bilaterally. Skin: Warm and dry. Results & Data ([facility]) Vital Signs (Past 12 Hours) Vital Signs Pulse Pulse Resp BP BP Pulse Ox O2 Del Method 10/07/21 08:00 76 18 110/80 98 Room Air 10/07/21 05:13 77 18 156/81 H 97 Room Air 10/07/21 03:30 68 15 98 10/07/21 03:00 67 14 97 10/07/21 02:30 69 12 96 10/07/21 02:23 76 17 135/78 98 10/07/21 01:30 84 13 124/68 97 10/07/21 01:00 96 H 14 113/81 97 10/07/21 00:45 100 H 17 109/52 L 96 10/07/21 00:30 96 H 15 114/59 L 97 10/07/21 00:15 116/70 10/07/21 00:15 113 H 18 93 10/07/21 00:00 105 H 18 125/84 94 10/06/21 23:46 107 H 20 120/62 97 10/06/21 23:31 112 H 22 129/76 96 10/06/21 23:00 86 16 122/76 96 10/06/21 22:38 139 H 127/76 10/06/21 23:00 91 H 17 122/76 97 Room Air 10/06/21 22:36 138 H 127/76 10/06/21 22:25 125 H 18 96 Room Air 10/06/21 22:25 125 H 18 137/53 L 96 Room Air 10/06/21 22:25 96 Room Air
--- NOTE | 2021-10-07 12:30 | Electrocardiogram Report ---
Test Reason : Blood Pressure : / mmHG Vent. Rate : 130 BPM Atrial Rate : 144 BPM P-R Int : 216 ms QRS Dur : 092 ms QT Int : 302 ms P-R-T Axes : 071 -13 073 degrees QTc Int : 444 ms Sinus tachycardia with short atrial runs Abnormal ECG When compared with ECG of 05-AUG-2020 17:08, Atrial runs now present Vent. rate has increased BY 60 BPM Confirmed by Tao Garcia ([id number]) on 10/07/2021 12:30:45 PM Referred By: REFERRED SELF Confirmed By:Tao Garcia
--- NOTE | 2021-10-07 15:43 | Discharge Summary ---
Date of Service October 07, 2021 Principal Diagnosis PSVT, dizziness, LIVAN likely secondary to dehydration Discharge Exam Lying in bed comfortably Constitutional average body habitus; not ill appearing Eyes PERRL, conjunctivae normal, anicteric sclerae ENMT external ear and nose normal, oropharynx normal Neck trachea midline, no thyromegaly Respiratory no respiratory distress Auscultation: lungs clear to auscultation bilaterally Cardiovascular Rate/Rhythm: regular rate and regular rhythm; not tachycardic Heart Sounds: normal S1 and normal S2; no murmur Extremities: no edema Gastrointestinal (Abdomen) Inspection/Auscultation: normal bowel sounds; abdomen not distended Percussion/Palpation: abdomen soft; abdomen nontender Musculoskeletal No acute arthritis in any joint Neurologic normal touch/pain/proprioception and moves all extremities; no focal motor deficits Psychiatric A+Ox3, euthymic affect Lymphatic no cervical or axillary lymphadenopathy Discharge Data Allergies Allergy/AdvReac Type Severity Reaction Status Date / Time No Known Drug Allergies Allergy Unknown . Verified 10/06/21 23:47 Consultations 10/06/21 23:23 ED Decision to Admit Stat 10/07/21 03:00 Consult Cardiology Routine Hospital Course (1) PSVT (paroxysmal supraventricular tachycardia): Admitted with dizziness and palpitation and noted to have narrow complex tachycardia Likely secondary to PSVT Denies any chest pain and palpitation Serial cardiac enzymes and EKG remained unremarkable Appreciate cardiology input and recommendation She will be discharged home this afternoon with outpatient Zio patch (2) Acute prerenal azotemia: Advised to drink more fluid (3) Weakness: Weakness likely secondary to dehydration and tachycardia Denies any any more weakness during my examination Plan Will be discharged home this afternoon Total Time Total Time Spent Total Time Spent (In Minutes): 35 minutes Discharge Plan Discharge Items Patient Disposition: Home - Self-Care Reason For Visit: WEAKNESS, DIZZY Discharge Diagnosis: PSVT, dizziness, acute renal failure likely secondary to dehydration Condition on Discharge: Good Activity: Resume your previous activity Non-emergency contact: Primary Care Provider Call non-emergency contact if: you have any medication questions and your symptoms worsen Follow-up/Referrals: Zio Patch Monitor [Other] (Date & Time 10/08/2021 8:30 AM Provider NURSE CARDIO [facility] Department Cardiac Studies, [facility] ) Brandan Trievdi DO [Physician] - (Date & Time 11/04/2021 11:00 AM Provider Brandan Trivedi Jr., DO Department Cardiology, [facility] ) Aracelis Rivera MD [Primary Care Provider] - (Date & Time 10/10/2021 11:10 AM Provider Juliana Tirado, DO Department Family [facility] ) Diet: Heart Healthy and Low Sodium (2gm) Addtl Attending Provider Instructions: Please take precautions to avoid fall Try to drink more fluid No change with your current medication Please keep appointments with your healthcare providers Pending Studies at Discharge: No Stand-Alone Forms: My [facility], Smoking Cessation Medications and DC Order Prescriptions: Continued atorvastatin 20 mg tablet 20 mg PO QPM tramadol 50 mg tablet 50 mg PO DAILY acetaminophen [Tylenol Extra Strength] 500 mg Tablet 500 mg PO BID PRN (Reason: Pain) levothyroxine 75 mcg tablet 75 mcg PO DAILY Centrum Silver 0.4 mg-300 mcg- 250 mcg Tablet 1 tab PO DAILY Discharge Orders: Discharge Order (Routine); Ordered 10/07/21 Ordered By: Kaitlin Rodrigez Admission Data Admit Date/Time: 10/07/21 00:15 Attending Provider: Kaitlin Rodrigez Admit Provider: Dominic Barnett Primary Care Provider: Aracelis Rivera Other Providers: Dominic Barnett ; Clarence Carrington
[2021-10-07] MEDS ORDERED: ATORVASTATIN 20 MG TAB PO SCH (21:00)
== END 2021-10-07 16:30 | disposition home or self-care (01) ==
LOC: EDINP 21:58 → ED 21:58 → EDINP 10-07 03:00